=== PATIENT | male | born 1950 | race Caucasian/White ===

== ENCOUNTER 2022-12-14 09:18 | Day surgery (SDC) | payer MEDICARE, BC ==
[~2022-12-14] VITALS: Ht 180.3 cm; Wt 98.9 kg
[2022-12-14] MEDS ORDERED: CT SWABBABLE VALVE TRANS SET 1 EA INFUS.SET MC ONE (11:26)
[2022-12-14] MEDS ORDERED: METOPROLOL TARTRATE INJ 5 MG/5 ML AMPUL ONE ×2 (11:26→13:19)
[2022-12-14] MEDS ORDERED: IOHEXOL-350 100 ML VIAL IV ONE (11:26)
[2022-12-14] MEDS ORDERED: NITROGLYCERIN 0.4 MG/TAB BOTTLE ONE (11:26)
[2022-12-14] MEDS ORDERED: IV NS 0.9% 250 ML IV ONE (11:27)
[2022-12-14] MEDS: METOPROLOL TARTRATE INJ 5 MG/5 ML AMPUL IVP PRN ×6 (12:55→13:20)
[2022-12-14] MEDS ORDERED: NITROGLYCERIN 0.4 MG/TAB BOTTLE SL ONE (13:30)
[2022-12-14 13:35] VITALS: BP 120/58
--- NOTE | 2022-12-14 13:42 | NUR ---
RN NOTES CTCA PROCEDURE WELL TOLERATED BY THE PT. PT IS AAOX3 PARSI SPEAKING ONLY, NOT IN RESPIRATORY DISTRESS, V/S STABLE. KEPT RESTED AND COMFORTABLE. CALLED AMBUL[facility] TRANSPORT TO SEND BACK PT TO [facility].
== END 2022-12-14 13:45 | disposition short-term general hospital (02) ==
LOC: CT 09:18
PROVIDERS: ATTEND Internal Medicine
DX: I65.22 Occlusion and stenosis of left carotid artery (principal); I25.10 Atherosclerotic heart disease of native coronary artery without angina pectoris; R06.09 Other forms of dyspnea
CPT/HCPCS: 75574; J3490 ×2; J7050; Q9967